=== PATIENT | female | born 1930 | race Caucasian/White ===

== ENCOUNTER 2016-07-08 09:29 | Day surgery (SDC) | payer MEDICARE ==
[~2016-07-08 09:29] MED LIST: Acetaminophen TAB* 325 MG PO PRN; Buffered Lidocaine 1% SYRIN* 3 ML/SYR SYRINGE INTRADERM ONE; Cyclopentolate 1% OPTH.SOL* 2 ML BTL ONE; Flurbiprofen 0.03% OPTH.SOL* 2.5 ML BTL ONE; Lidocaine 1% MPF* 2 ML VIAL ONE; Neomycin/Polymy/Dex OPHTH.OIN* 3.5 GM ONE; Phenylephrine 2.5% OPTH.SOL* 2 ML BTL ONE; Povidone Iodine 5% OPTH* 30 ML BTL ONE; Tetracaine 0.5% OPTH.SOL 4 ML* 1 DROP BTL ONE; acetaZOLAMIDE TAB* 250 MG ONE
[2016-07-08] MEDS ORDERED: fentaNYL* 50 MCG/ML 2 ML VIAL (100 MCG VIAL) ONE (10:49)
[2016-07-08] MEDS ORDERED: Midazolam* 1 MG/ML 2 ML VIAL (2 MG) ONE ×2 (10:49→11:13)
[2016-07-08 11:40] VITALS: BP 173/72
--- NOTE | 2016-07-09 04:34 | OP ---
OPERATIVE REPORT: DATE OF OPERATION: 07/08/16 - [facility] DATE OF : 28 SURGEON: Dr. Chas Cloud. ANESTHESIOLOGIST: Pradeep Vieira MD ANESTHESIA: Monitored anesthesia care. PRE-OP DIAGNOSIS: Cataract of the right eye. POST-OP DIAGNOSIS: Cataract of the right eye. OPERATIVE PROCEDURE: Cataract extraction of the right eye. IMPLANTS: SN60WF 23.0 diopter lens to the right eye. COMPLICATIONS: None. DESCRIPTION OF PROCEDURE: The patient was given phenylephrine 2.5% and cyclopentolate 1% eyedrops to the operative eye in the preoperative area. The patient was brought to the operating room where a time-out was taken to identify the correct patient, site and side of the surgery. The patient's right eye was prepped and draped in the usual sterile fashion with 5% Betadine. A second time- out was taken to verify the correct patient, site and side of the surgery and correct lens selection. A lid speculum was placed to the right eye. A 1 mm paracentesis blade was used to make a clear corneal incision in the superotemporal position. Preservative-free 1% lidocaine was injected into the anterior chamber. DisCoVisc was then injected in the anterior chamber. A 2.75 mm keratome blade was used to make a triplanar incision at the inferotemporal position. A cystotome was used to initiate a capsulorrhexis, which was completed with Utrata forceps in a continuous and curvilinear manner. Hydrodissection of the lens was then performed with BSS on the cannula. The lens could be spun in the capsular bag. The phacoemulsification handpiece was then used with a divide and conquer technique to remove the nucleus in its entirety with 18.78 CDE. The I/A handpiece was then used to remove the residual cortical lens material. DisCoVisc was then injected to inflate the capsular bag. The planned SN60WF 23.0 diopter lens was then injected into the capsular bag. The residual DisCoVisc was then removed from the eye with the I/ A handpiece. The corneal incisions were then hydrated and no leaks occurred at physiologic pressure around 20 mmHg per palpation. The lid speculum was then removed and drapes removed. Maxitrol ointment was then placed to the surface of the operative eye. An adhesive patch and shield were then placed on the operative eye. The patient was taken to the postoperative area in stable condition. [id number]/[facility] #: [id number] SHOSHANA
== END 2016-07-08 11:43 | disposition home or self-care (01) ==
LOC: OREAST 09:29
PROVIDERS: ATTEND Student in an Organized Health Care Education/Training Program
DX: H25.11 Age-related nuclear cataract, right eye (principal); E11.9 Type 2 diabetes mellitus without complications; E78.00 Pure hypercholesterolemia, unspecified
CPT/HCPCS: J2250; J3010; V2632

== ENCOUNTER 2016-07-15 08:50 | Day surgery (SDC) | payer MEDICARE ==
[~2016-07-15 08:50] MED LIST changes: -Acetaminophen TAB* 325 MG PO PRN; +Tropicamide 1% OPTH.SOL* BTL ONE
[2016-07-15] MEDS ORDERED: Midazolam* 1 MG/ML 2 ML VIAL (2 MG) ONE (10:08)
[2016-07-15] MEDS ORDERED: fentaNYL* 50 MCG/ML 2 ML VIAL (100 MCG VIAL) ONE (10:08)
[2016-07-15] MEDS ORDERED: Artificial Tear OPHTH.OINT* 3.5 GM ONE (10:18)
[2016-07-15 11:20] VITALS: BP 171/56
--- NOTE | 2016-07-16 04:04 | OP ---
DATE OF OPERATION: 07/15/16 - [facility] DATE OF : 28 SURGEON: Chas Cloud MD ANESTHESIOLOGIST: Noah Wiley DO ANESTHESIA: Monitored anesthesia care. PRE-OP DIAGNOSIS: Cataract of the left eye. POST-OP DIAGNOSIS: Cataract of the left eye. OPERATIVE PROCEDURE: Cataract extraction of the left eye. IMPLANTS: SN60WF 22.0 diopter lens to the left eye. COMPLICATIONS: None. DESCRIPTION OF PROCEDURE: The patient was given phenylephrine 2.5% and cyclopentolate 1% eyedrops to the operative eye in the preoperative area. The patient was brought to the operating room where a time-out was taken to identify the correct patient, site, and side of the surgery. The patient's left eye was prepped and draped in the usual sterile fashion with 5% Betadine. A second time- out was taken to verify the correct patient, site, and side of surgery and correct lens selection. A lid speculum was placed to the left eye. A 1 mm paracentesis blade was used to make a clear corneal incision in the inferior temporal position. Preservative free 1% lidocaine was injected into the anterior chamber. Duovisc was then injected into the anterior chamber. A 2.75 mm keratome blade was used to make a triplanar incision in the superotemporal position. A cystotome was used to initiate a capsulorrhexis, which was completed with Utrata forceps in a continuous and curvilinear manner. Hydrodissection of the lens was then performed with BSS on a cannula. The lens could be spun in the capsular bag. The phacoemulsification handpiece was then used with a divide and conquer technique to remove the nucleus in its entirety with 20.44 CDE. The I/A handpiece was then used to remove the residual cortical lens material. Duovisc was then injected to inflate the capsular bag. The planned SN60WF 22.0 diopter lens was then injected into the capsular bag. The residual Duovisc was then removed from the eye with the I/A handpiece. The corneal incisions were then hydrated and no leaks occurred at physiologic pressure around 20 mmHg per palpation. The lid speculum was then removed and the drapes removed. Maxitrol ointment was then placed on the surface of the operative eye. An adhesive patch and shield were then placed on the operative eye. The patient was taken to the postoperative area in stable condition. [id number]/[facility] #: [id number] MTDMiguel
== END 2016-07-15 11:05 | disposition home or self-care (01) ==
LOC: OREAST 08:50
PROVIDERS: ATTEND Student in an Organized Health Care Education/Training Program
DX: H25.12 Age-related nuclear cataract, left eye (principal); E11.9 Type 2 diabetes mellitus without complications; I10 Essential (primary) hypertension; R20.2 Paresthesia of skin; I69.398 Other sequelae of cerebral infarction
CPT/HCPCS: A9270-GY; J2250; J3010; V2632